=== PATIENT | female | born 1990 | race Asian ===

== ENCOUNTER → 2018-10-02 | Outpatient (REF) | payer OTHER ==
[2018-10-02 20:10] LABS: CHLAMYDIA DNA AMPLIFICATION NEGATIVE (NEGATIVE); GC DNA AMPLIFICATION NEGATIVE (NEGATIVE)
== END ==
LOC: M LAB REF 17:24
PROVIDERS: ATTEND Physician Assistant
DX: Z11.9 Encounter for screening for infectious and parasitic diseases, unspecified (principal)

== ENCOUNTER → 2018-10-03 | Outpatient (CLI) | payer OTHER ==
[2018-10-05 12:40] LABS: HEPATITIS B CORE ANTIBODY IGM NEGATIVE (NEGATIVE); HEPATITIS B SURFACE ANTIBODY NEGATIVE (POSITIVE); HEPATITIS B SURFACE ANTIGEN NEGATIVE (NEGATIVE); RUBELLA IgG QUALITATIVE IMMUNE (IMMUNE)
[2018-10-07 00:06] LABS: HERPES ZOSTER, VARICELLA IgG 962 index (Immune >165); HERPES ZOSTER, VARICELLA IgM <0.91 index (0.00-0.90); POLIO ANTIBODIES/POLIOMYELITIS Negative (Neg:<1:8)
== END ==
LOC: M LRY 17:37
PROVIDERS: ATTEND Physician Assistant
DX: Z01.84 Encounter for antibody response examination (principal); Z11.3 Encounter for screening for infections with a predominantly sexual mode of transmission

== ENCOUNTER → 2019-02-12 | Outpatient (CLI) | payer OTHER ==
[2019-02-12 17:14] LABS: HEMATOCRIT 38.2 % (36.0-47.0); HEMOGLOBIN 11.7 g/dl (12.0-15.5); MEAN CORPUSCULAR HGB CONC 30.6 g/dl (32.0-36.5); MEAN CORPUSCULAR VOLUME 68.7 fl (80.0-96.0); PLATELET COUNT, AUTOMATED 346 10^3/uL (150-450); RED BLOOD COUNT 5.56 10^6/uL (4.00-5.40); WHITE BLOOD COUNT 8.4 10^3/uL (4.0-10.0)
[2019-02-12 17:41] LABS: ALBUMIN 4.1 GM/DL (3.2-5.2); ALT/SGPT 16 U/L (12-78); BILIRUBIN,TOTAL 0.3 MG/DL (0.2-1.0); BLOOD UREA NITROGEN 15 MG/DL (7-18); C REACTIVE PROTEIN QUANTITATIV < 0.30 MG/DL (0.00-0.30); CALCIUM LEVEL 8.9 MG/DL (8.5-10.1); CARBON DIOXIDE LEVEL 30 MEQ/L (21-32); CHLORIDE LEVEL 105 MEQ/L (98-107); CREATININE FOR GFR 0.56 MG/DL (0.55-1.30); GLOMERULAR FILTRATION RATE > 60.0 (>60); GLUCOSE, FASTING 86 MG/DL (70-100); POTASSIUM SERUM 4.2 MEQ/L (3.5-5.1); SODIUM LEVEL 140 MEQ/L (136-145); TOTAL PROTEIN 7.5 GM/DL (6.4-8.2)
[2019-02-12 17:52] LABS: ERYTHROCYTE SEDIMENTATION RATE 9 mm/hr (0-20)
--- NOTE | 2019-02-12 18:48 | REP ---
HISTORY: Pain due to rheumatoid arthritis. Four views of the hands. COMPARISON: None. There is mild asymmetric intradigital joint space narrowing involving the proximal interphalangeal joint of the third digit. There is slight marginal osteophytosis. The joint spaces are otherwise symmetric and well maintained. There are no marginal erosions and there is no periarticular osteopenia. There is no acute fracture. IMPRESSION: Chronic changes involving the proximal interphalangeal joint of the third digit. These changes might be secondary to old trauma. FOUR VIEWS OF THE LEFT HAND: There is asymmetric interdigital joint space narrowing involving the proximal joints of digits two and three. This is seen with marginal osteophytosis. The remainder of the joint spaces are symmetric and well maintained. There is no periarticular osteopenia and there are no marginal erosions. There is no acute fracture. IMPRESSION: Bilateral chronic changes as described above. Electronically Signed by Gabriel Ferris DO 02/12/2019 07:45 P
== END ==
LOC: M LAB 16:08
PROVIDERS: ATTEND Internal Medicine Rheumatology
DX: Z87.39 Personal history of other diseases of the musculoskeletal system and connective tissue (principal)
CPT/HCPCS: 36415; 73130; 80053; 85027; 85652; 86140; 86200; 86431; G0463

== ENCOUNTER → 2019-06-21 | Outpatient (CLI) | payer OTHER ==
[2019-06-21 14:02] LABS: BASO % 0.2 % (0.0-1.0); EOS # 0.1 10^3/uL (0.0-0.5); EOS % 0.6 % (0.0-3.0); HEMATOCRIT 37.2 % (36.0-47.0); HEMOGLOBIN 11.5 g/dl (12.0-15.5); LYMPH # 1.8 10^3/uL (1.5-5.0); LYMPH % 21.7 % (24.0-44.0); MEAN CORPUSCULAR HGB CONC 30.9 g/dl (32.0-36.5); MEAN CORPUSCULAR VOLUME 67.9 fl (80.0-96.0); MONO # 0.8 10^3/uL (0.0-0.8); MONO % 9.3 % (0.0-5.0); NEUTROPHILS # 5.7 10^3/uL (1.5-8.5); NEUTROPHILS % 67.7 % (36.0-66.0); PLATELET COUNT, AUTOMATED 294 10^3/uL (150-450); RED BLOOD COUNT 5.48 10^6/uL (4.00-5.40); WHITE BLOOD COUNT 8.4 10^3/uL (4.0-10.0)
[2019-06-21 14:57] LABS: HEPATITIS C VIRUS ABY INDEX < 0.0 INDEX (<0.8); HIV 1&2 SCREEN CENTAUR NEGATIVE (NEGATIVE); RUBELLA IgG QUALITATIVE IMMUNE (IMMUNE)
[2019-06-21 15:29] LABS: CHLAMYDIA DNA AMPLIFICATION NEGATIVE (NEGATIVE); GC DNA AMPLIFICATION NEGATIVE (NEGATIVE)
== END ==
LOC: M PLALAB 11:17
PROVIDERS: ATTEND Advanced Practice Midwife
DX: Z34.92 Encounter for supervision of normal pregnancy, unspecified, second trimester (principal); Z3A.00 Weeks of gestation of pregnancy not specified
CPT/HCPCS: 36415; 85025; 86762; 86780; 86803; 86850; 87086; 87340; 87389; 87491; 87591; G0463

== ENCOUNTER → 2019-07-19 | Outpatient (CLI) | payer OTHER ==
--- NOTE | 2019-07-19 17:36 | REP ---
Obstetric sonography: History: Supervision of for anatomy. Findings: Scanning through the gravid uterus demonstrates a viable single intrauterine gestation in a cephalic lie. motion is observed and heart rate is recorded at 147 beats per minute. An anterior grade 0 placenta is seen without evidence of previa or abruption. Amniotic fluid is subjectively normal. Closed cervical length is 3.1 cm. No extrauterine abnormalities observed. Umbilical cord is seen draping over the shoulders. No anomaly is seen. spine is less than optimally visualized due to position. The following additional anatomic structures are identified and felt to be sonographically unremarkable: cranium, choroid plexus, cavum, cerebellum and posterior fossa, face and profile, lungs, four-chamber heart with left and right ventricular outflow tract views, diaphragm, left-sided stomach, abdominal wall cord insertion, three-vessel cord, kidneys and bladder, upper and lower extremities. Biometry chart: BPD 4.7 cm = 20 weeks 2 days HC 18.9 cm = 21 weeks 1 day AC 15.6 cm = 20 weeks 5 days FL 3.5 cm = 21 weeks 1 day HL 3.5 cm = 22 weeks 0 days CD 2.2 cm = 20 weeks 3 days HC/AC ratio normal 1.21. Cephalic index normal 0.67. Estimated weight 386 grams, 0 pounds 13 ounces, 44th percentile for 21 weeks 0 days. Impression: Viable single intrauterine gestation at 20 weeks 4 days by today's composite sonographic criteria. spine is less than optimally seen. Otherwise, anatomic survey is felt to be complete. Electronically Signed by Soham Abdalla MD 07/20/2019 02:24 P
== END ==
LOC: M LRY 13:57
PROVIDERS: ATTEND Advanced Practice Midwife
DX: Z34.92 Encounter for supervision of normal pregnancy, unspecified, second trimester (principal); Z3A.20 20 weeks gestation of pregnancy

== ENCOUNTER → 2019-09-24 | Outpatient (CLI) | payer OTHER ==
--- NOTE | 2019-09-25 01:55 | REP ---
Clinical: Anatomical evaluation. Comparison: 07/19/2019 . Findings: Examination demonstrates a single live intrauterine in cephalic presentation. motion is identified by technologist. Placenta is noted anterior and grade I without evidence for placenta previa or abruption. Amniotic fluid volume is normal. Cervix measures 3.2 cm in length and appears closed. No evidence for nuchal cord. Gestational age by LMP 30 weeks 4 days with KANNAN 11/29/2019 . Gestational age by current measurements 30 weeks 0 days with KANNAN 12/03/2019 . FHR equals 140 beats per minute. Estimated weight 1533 grams ( 34th percentile). Anatomical assessment demonstrates normal structures including cranium, facial features, four-chamber heart, diaphragm, stomach, cord insertion/three-vessel cord, kidneys, and bladder. Impression: single live intrauterine in cephalic presentation demonstrating appropriate estimated weight. Images of the cervical and thoracic spine are again limited due to positioning. Remainder of the anatomical assessment in conjunction with prior examination is complete.
== END ==
LOC: M WHC 13:44
PROVIDERS: ATTEND Nurse Practitioner Women's Health
DX: Z34.92 Encounter for supervision of normal pregnancy, unspecified, second trimester (principal); Z36.89 Encounter for other specified antenatal screening; Z3A.30 30 weeks gestation of pregnancy

== ENCOUNTER → 2019-09-24 | Outpatient (REF) | payer OTHER | LOC: M PLALAB 15:31 | PROVIDERS: ATTEND Specialist | DX: Z34.83 Encounter for supervision of other normal pregnancy, third trimester (principal) ==

== ENCOUNTER → 2019-10-24 | Outpatient (REF) | payer OTHER ==
[~2019-10-24] MED LIST: PLAQ200T4 PO; PRENTAB9 PO
== END ==
LOC: M SFHCSACK 16:31
PROVIDERS: ATTEND Specialist
DX: Z34.83 Encounter for supervision of other normal pregnancy, third trimester (principal)

== ENCOUNTER → 2019-10-24 | Outpatient (CLI) | payer OTHER ==
--- NOTE | 2019-11-11 14:18 | REP ---
REASON: Followup anatomy. The examination is dated 10/24/2019, however, it has been brought to my attention for the first time for interpretation today at this time. Multiple ultrasonographic images of the gravid uterus show a single intrauterine gestation in the cephalic presentation. Doppler interrogation of the heart shows a heart rate of 155 beats per minute. The placenta is anterior and not low lying. The subjective amniotic fluid volume is within normal limits. The cervix measures 3.6 cm in length and is closed. BPD 8.5 cm = 34 weeks 1 day HC 30.9 cm = 34 weeks 3 days AC 29.7 cm = 33 weeks 5 days FL 6.5 cm = 33 weeks 4 days The estimated weight is 2276 grams, which is at the 28th percentile for a 34 week-6-day gestational age. Today's examination shows the spine to be within normal limits. All other anatomical structures were seen previously. IMPRESSION: Single living intrauterine gestation as described above.
== END ==
LOC: M WHC 12:37
PROVIDERS: ATTEND Specialist
DX: Z36.2 Encounter for other antenatal screening follow-up (principal); Z3A.34 34 weeks gestation of pregnancy
CPT/HCPCS: 76816; 87081; G0463

== ENCOUNTER 2019-11-26 11:19 | Inpatient (IN) | payer OTHER ==
[~2019-11-26] VITALS: Ht 154.9 cm; Wt 64.6 kg
[2019-11-26] MEDS ORDERED: OXYTOCIN 30 UNITS IN 0.9% NaCl 500ML IV BAG (J2590) As Ordered ONE (12:08)
[2019-11-26] MEDS ORDERED: LR 1,000 ML IV ONE (12:30)
[2019-11-26 12:35] LABS: HEMATOCRIT 39.9 % (36.0-47.0); HEMOGLOBIN 12.4 g/dl (12.0-15.5); MEAN CORPUSCULAR HEMOGLOBIN 21.9 pg (27.0-33.0); MEAN CORPUSCULAR HGB CONC 31.1 g/dl (32.0-36.5); MEAN CORPUSCULAR VOLUME 70.6 fl (80.0-96.0); PLATELET COUNT, AUTOMATED 240 10^3/uL (150-450); RED BLOOD COUNT 5.65 10^6/uL (4.00-5.40); WHITE BLOOD COUNT 15.4 10^3/uL (4.0-10.0)
[2019-11-26] MEDS ORDERED: OXYTOCIN DRIP 30 UNITS in IV 1 EA IV SCH (13:02)
[2019-11-26] MEDS ORDERED: PRENTAB9 PO (13:06)
[2019-11-26] MEDS ORDERED: PLAQ200T4 PO (13:06)
--- NOTE | 2019-11-26 13:12 | HPEPDOC ---
Obstetrical History & Physical General Date of Admission Nov 26, 2019 at 12:24 History of Present Illness 29-year-old 3, para 1 who presents at 39 weeks 4 days with contractions. Chief Complaint: Contractions, term Information Provided By: Patient Age: 29 : 3 Livin Care Care: Good Care Number of Visits: 10 Dating Final EDC: Nov 29, 2019 Final EDC by: LMP LMP: Feb 23, 2019 EGA at Admission: 39 Past Medical History Past Obstetrical History : Past Obstetrical History: Multigravida Type of Delivery: Spontaneous Vaginal Del. 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 Past Medical History Medical History Rheumatoid arthritis Surgical History: Denies/None Family History Significant Family History: No pertinent family hx Social History Marital Status: Family situation: Spouse/partner home Psychosocial History: No pertinent psych hx * Smoker: non-smoker Alcohol: Denies Drugs: denies Allergies Coded Allergies: No Known Drug Allergies (Verified Allergy, Unknown, 11/26/19) Medications Scheduled Hydroxychloroquine Sulfate (Plaquenil) 200 Mg Tablet, 200 MG PO DAILY No.137/Iron/Folic Acd ( Vitamin Tablet) 1 Each Tablet, 1 TAB PO DAILY Physical Examination Physical Examination GENERAL: Alert and oriented times three. BREAST: . ABDOMEN: Gravid and non-tender to touch. FETUS: Is vertex (VTX) by sterile vaginal examination (SVE), fetus is vertex (VTX) by Arjun. HEART RATE: Regular rate and rhythm. LUNGS: Clear to auscultation (CTA). Laboratory Data 24H LABS Laboratory Tests 2 11/26/19 12:10: Nucleated Red Blood Cells % (auto) 0.0 11/26/19 12:31: Serology Scanned Report Hepatitis B Testing CBC/BMP Laboratory Tests 11/26/19 12:10 Pertinent Laboratoy Data Blood Type: A+ RBC Antibody Screen: Negative HIV: Negative Hepatitis B: Negative Hepatitis C: Negative Rapid Plasma Reagin: Nonreactive Rubella: Immune Chlamydia/Gonorrhea: Negative Group B Streptococcus: Negative Anatomy Ultrasound Placenta Location: Anterior Normal Anatomy: Yes Placenta Previa: No Vaginal Examination Dilation: 6 cm Effacement: 90% Station: -1, 0 Cervical Consistency: Soft Cervical Position: Anterior Presentation: Cephalic presentation Assessment Variability: Moderate Accelerations: Positive Tocometer Contractions: Yes Assessment/Plan Assessment 29-year-old 3, para 1 at 39 weeks 4 days estimate gestational age in active labor. Reassuring status Plan Admit and orient. Biometrics Head and consent. Group B Streptococcus (GBS) negative. Labs and intravenous (IV) per unit protocol. Counseled on Pitocin and induction of labor (IOL). Anticipate normal spontaneous delivery (). C-S as appropriate. AGUEDA PINEDO MD. Nov 26, 2019 13:12
[2019-11-26] MEDS ORDERED: DIBUCAINE 1% OINTMENT 30GM TOP PRN (13:15)
[2019-11-26] MEDS ORDERED: DOCUSATE SODIUM 100 MG CAP PO PRN (13:15)
[2019-11-26] MEDS ORDERED: IBUPROFEN 800 MG TAB PO PRN (13:15)
[2019-11-26] MEDS ORDERED: METHYLERGONOVINE MALEATE 0.2 MG TAB PO PRN (13:15)
[2019-11-26] MEDS ORDERED: ACETAMINOPHEN 500 MG TAB PO PRN (13:15)
[2019-11-26] MEDS ORDERED: IBUPROFEN 600MG TAB PO PRN (13:15)
[2019-11-26] MEDS ORDERED: MEASLES,MUMPS,RUBELLA VACCINE INJ (MMR-II) (90707) SC SCH (13:15)
[2019-11-26] MEDS ORDERED: ANUSOL HC CREAM 30GM TOP PRN (13:15)
[2019-11-26] MEDS ORDERED: MOM 30ML SUSPENSION UDC PO PRN (13:15)
[2019-11-26] MEDS ORDERED: RHOGAM 300 MCG (1500 IU) INJ (J2790) IM SCH (13:15)
[2019-11-26] MEDS ORDERED: ACETAMINOPHEN TAB 650MG DOSE (2X325MG) PO PRN (13:15)
--- NOTE | 2019-11-26 13:16 | DNPDOC ---
[facility] Delivery Note Delivery Note DATE OF DELIVERY: 11/26/2019 TIME OF : 1229 GENDER: Female. APGARS: 9 and 9. WEIGHT:, 3090 grams or 6 pounds 13 ounces. LACERATIONS: First-degree midline laceration ANESTHESIA: None. ESTIMATED BLOOD LOSS: 300ml COUNTS: 5 laparotomy sponges accounted for prior to after delivery. One sharps removed delivery field. DELIVERY NOTE: 11/26/2019 at 1229. This patient is 29-year-old 3, now para 2, had a spontaneous vaginal delivery of viable female infant, Apgars, 9 and 9. Weight was 6 lbs. 13 oz., 3090 g. Head was delivered occiput anterior (OA), followed by delivery of the shoulders and corpus. was handed to mom with a good cry. Cord was clamped times two and was cut by the mother under my direction. Placenta was then drained and delivered grossly intact. A premixed bag of 500 mL of normal saline with 30 units of Pitocin was then bolused along with uterine massage until the uterus was firm. On inspection, there was a first-degree midline laceration which was repaired with 3-0 Vicryl. On reinspection, cervix, vagina, perineum was grossly intact and hemostatic. Mom and baby in recovery on stable condition. AGUEDA PINEDO MD. Nov 26, 2019 13:16
[2019-11-26] MEDS ORDERED: LR 1,000 ML IV SCH (13:30)
[2019-11-26] MEDS ORDERED: LIDOCAINE 1% MDV 20ML VIAL INFIL ONE (13:30)
[2019-11-26 15:00] VITALS: BP 111/61
[2019-11-26 18:03] VITALS: BP 101/59
[2019-11-27] MEDS: HYDROXYCHLOROQUINE 200 MG TAB PO SCH ×2 (01:04→20:38)
[2019-11-27 06:31] VITALS: BP 100/57
--- NOTE | 2019-11-27 06:52 | IPNPDOC ---
Progress Note Date of Service: Nov 27, 2019 Day#: 1 Progress Note SUBJECT: Doing well without complaints. Ambulating, voiding and pain is well- controlled. Reports minimal lochia. +breast feeding OBJECTIVE: VITAL SIGNS: Within normal limits, afebrile. Alert and oriented times three. Abdomen: Fundus firm at U-2. Soft, NTTP. Ext: neg calf tenderness. ASSESSMENT: day #1 status post normal spontaneous vaginal delivery. Recovering in stable condition. PLAN: 1. Continue routine care 2. Discharge plans for tomorrow, possibly today if baby is discharged VS, I&O, 24H, Fishbone Vital Signs/I&O Vital Signs Date Time Temp Pulse Resp B/P (MAP) Pulse Ox O2 Delivery O2 Flow Rate FiO2 11/27/19 06:31 97.9 69 18 100/57 (71) I&O- Last 24 Hours up to 6 AM 11/27/19 06:00 Intake Total 800 ml Output Total 300 ml Balance 500 ml Laboratory Data 24H LABS Laboratory Tests 2 11/26/19 12:10: Nucleated Red Blood Cells % (auto) 0.0 11/26/19 12:31: Serology Scanned Report Hepatitis B Testing CBC/BMP Laboratory Tests 11/26/19 12:10 AGUEDA PINEDO MD. Nov 27, 2019 06:52
[2019-11-27] MEDS: PRENATAL VITAMINS CHEWABLE TABLET PO SCH (09:00)
[2019-11-27 18:00] VITALS: BP 118/74
[2019-11-28 06:29] VITALS: BP 109/70
[2019-11-28 07:59] VITALS: BP 109/70
[2019-11-28] MEDS: PRENATAL VITAMINS CHEWABLE TABLET PO SCH (09:00)
== END 2019-11-29 | disposition home or self-care (01) | DRG 807 ==
LOC: M LDO 11:19 → M LDI 12:24 → M OBS 15:28
PROVIDERS: ADMIT Obstetrics & Gynecology; ATTEND Obstetrics & Gynecology
PROC: 10E0XZZ Delivery of Products of Conception, External Approach (ICD-10-PCS; principal; 2019-11-26)
PROC: 0HQ9XZZ Repair Perineum Skin, External Approach (ICD-10-PCS; 2019-11-26)
DX: O70.0 First degree perineal laceration during delivery (principal); Z37.0 Single live birth; Z3A.39 39 weeks gestation of pregnancy

== ENCOUNTER → 2020-03-31 | Outpatient (REF) | payer OTHER ==
[2020-03-31 16:54] LABS: BASO % 0.2 % (0.0-1.0); EOS # 0.2 10^3/uL (0.0-0.5); EOS % 1.7 % (0.0-3.0); HEMATOCRIT 40.4 % (36.0-47.0); HEMOGLOBIN 12.2 g/dl (12.0-15.5); LYMPH # 2.9 10^3/uL (1.5-5.0); MEAN CORPUSCULAR HEMOGLOBIN 21.2 pg (27.0-33.0); MEAN CORPUSCULAR HGB CONC 30.2 g/dl (32.0-36.5); MEAN CORPUSCULAR VOLUME 70.1 fl (80.0-96.0); MONO # 0.7 10^3/uL (0.0-0.8); NEUTROPHILS # 6.1 10^3/uL (1.5-8.5); NEUTROPHILS % 61.9 % (36.0-66.0); PLATELET COUNT, AUTOMATED 329 10^3/uL (150-450); RED BLOOD COUNT 5.76 10^6/uL (4.00-5.40); WHITE BLOOD COUNT 9.8 10^3/uL (4.0-10.0)
[2020-03-31 17:07] LABS: ALBUMIN 3.8 GM/DL (3.2-5.2); ALT/SGPT 20 U/L (12-78); BILIRUBIN,TOTAL 0.3 MG/DL (0.2-1.0); BLOOD UREA NITROGEN 16 MG/DL (7-18); C REACTIVE PROTEIN QUANTITATIV 0.64 MG/DL (0.00-0.30); CALCIUM LEVEL 9.3 MG/DL (8.5-10.1); CARBON DIOXIDE LEVEL 28 MEQ/L (21-32); CHLORIDE LEVEL 106 MEQ/L (98-107); CREATININE FOR GFR 0.56 MG/DL (0.55-1.30); GLOMERULAR FILTRATION RATE > 60.0 (>60); GLUCOSE, FASTING 106 MG/DL (70-100); POTASSIUM SERUM 4.1 MEQ/L (3.5-5.1); SODIUM LEVEL 139 MEQ/L (136-145); TOTAL PROTEIN 7.5 GM/DL (6.4-8.2)
[2020-03-31 17:23] LABS: HEPATITIS B SURFACE ANTIGEN NEGATIVE (NEGATIVE)
[2020-03-31 19:15] LABS: ERYTHROCYTE SEDIMENTATION RATE 9 mm/hr (0-20)
== END ==
LOC: M SFHCRHEU 15:34
PROVIDERS: ATTEND Internal Medicine
DX: M05.79 Rheumatoid arthritis with rheumatoid factor of multiple sites without organ or systems involvement (principal)
CPT/HCPCS: 80053; 85025; 85652; 86140; 86480; 86704; 87340; G0463

== ENCOUNTER → 2020-08-14 | Outpatient (REF) | payer OTHER ==
[2020-08-14 19:15] LABS: BASO % 0.2 % (0.0-1.0); EOS # 0.2 10^3/uL (0.0-0.5); EOS % 1.8 % (0.0-3.0); HEMOGLOBIN 11.8 g/dl (12.0-15.5); LYMPH # 3.4 10^3/uL (1.5-5.0); LYMPH % 30.1 % (24.0-44.0); MEAN CORPUSCULAR HGB CONC 30.3 g/dl (32.0-36.5); MEAN CORPUSCULAR VOLUME 69.4 fl (80.0-96.0); MONO % 8.5 % (2.0-8.0); NEUTROPHILS # 6.6 10^3/uL (1.5-8.5); PLATELET COUNT, AUTOMATED 340 10^3/uL (150-450); RED BLOOD COUNT 5.62 10^6/uL (4.00-5.40); WHITE BLOOD COUNT 11.1 10^3/uL (4.0-10.0)
[2020-08-14 19:19] LABS: ALBUMIN 3.9 GM/DL (3.2-5.2); ALT/SGPT 15 U/L (12-78); BILIRUBIN,TOTAL 0.3 MG/DL (0.2-1.0); BLOOD UREA NITROGEN 14 MG/DL (7-18); CALCIUM LEVEL 8.6 MG/DL (8.5-10.1); CARBON DIOXIDE LEVEL 25 MEQ/L (21-32); CHLORIDE LEVEL 110 MEQ/L (98-107); CREATININE FOR GFR 0.48 MG/DL (0.55-1.30); GLOMERULAR FILTRATION RATE > 60.0 (>60); GLUCOSE, FASTING 105 MG/DL (70-100); POTASSIUM SERUM 4.1 MEQ/L (3.5-5.1); SODIUM LEVEL 142 MEQ/L (136-145); TOTAL PROTEIN 7.2 GM/DL (6.4-8.2)
[2020-08-14 20:15] LABS: ERYTHROCYTE SEDIMENTATION RATE 7 mm/hr (0-20)
== END ==
LOC: M SFHCRHEU 14:35
PROVIDERS: ATTEND Internal Medicine Rheumatology
DX: M05.79 Rheumatoid arthritis with rheumatoid factor of multiple sites without organ or systems involvement (principal)
CPT/HCPCS: 80053; 85025; 85652; 86140; G0463

== ENCOUNTER → 2021-02-04 | Outpatient (REF) | payer OTHER ==
[2021-02-04 17:20] LABS: BASO # 0.1 10^3/uL (0.0-0.2); BASO % 0.7 % (0.0-1.0); EOS # 0.1 10^3/uL (0.0-0.5); HEMATOCRIT 44.1 % (36.0-47.0); HEMOGLOBIN 13.4 g/dl (12.0-15.5); LYMPH # 3.4 10^3/uL (1.5-5.0); LYMPH % 31.7 % (24.0-44.0); MEAN CORPUSCULAR HEMOGLOBIN 20.6 pg (27.0-33.0); MEAN CORPUSCULAR HGB CONC 30.4 g/dl (32.0-36.5); MEAN CORPUSCULAR VOLUME 67.6 fl (80.0-96.0); MONO # 0.6 10^3/uL (0.0-0.8); MONO % 5.6 % (2.0-8.0); NEUTROPHILS # 6.5 10^3/uL (1.5-8.5); NEUTROPHILS % 60.7 % (36.0-66.0); RED BLOOD COUNT 6.52 10^6/uL (4.00-5.40); WHITE BLOOD COUNT 10.7 10^3/uL (4.0-10.0)
[2021-02-04 17:47] LABS: ALBUMIN 4.5 GM/DL (3.2-5.2); ALT/SGPT 18 U/L (12-78); BILIRUBIN,TOTAL 0.5 MG/DL (0.2-1.0); BLOOD UREA NITROGEN 11 MG/DL (7-18); CALCIUM LEVEL 9.8 MG/DL (8.5-10.1); CARBON DIOXIDE LEVEL 28 MEQ/L (21-32); CHLORIDE LEVEL 102 MEQ/L (98-107); CPK CREATINE PHOSPHOKINASE 160 U/L (26-192); CREATININE FOR GFR 0.63 MG/DL (0.55-1.30); GLOMERULAR FILTRATION RATE > 60.0 (>60); GLUCOSE, FASTING 97 MG/DL (70-100); POTASSIUM SERUM 4.1 MEQ/L (3.5-5.1); SODIUM LEVEL 138 MEQ/L (136-145); TOTAL PROTEIN 8.7 GM/DL (6.4-8.2)
[2021-02-04 17:52] LABS: ERYTHROCYTE SEDIMENTATION RATE 2 mm/hr (0-20)
[2021-02-04 18:50] LABS: PLATELET COUNT, AUTOMATED 278 10^3/uL (150-450)
== END ==
LOC: M SFHCRHEU 14:14
PROVIDERS: ATTEND Internal Medicine Rheumatology
DX: M05.79 Rheumatoid arthritis with rheumatoid factor of multiple sites without organ or systems involvement (principal)

== ENCOUNTER → 2021-03-03 | Outpatient (CLI) | payer OTHER ==
--- NOTE | 2021-03-03 15:32 | REP ---
INDICATION: (+) PREG W/ ABD PAIN CRAMPING. COMPARISON: None. TECHNIQUE: Real-time sonographic evaluation of gravid uterus performed. FINDINGS: There is a single living intrauterine gestation. The estimated gestational age is 6 weeks 6 days based on a crown-rump length of 9 millimeters, EDC 10/21/2021. heart rate 153 beats per minute. Blood flow seen in each ovary with duplex Doppler evaluation, with no torsion. A hypoechoic area in the right ovary may represent a complex corpus luteum 2.2 centimeters in diameter. There appears to be a small subchorionic hemorrhage posteriorly measuring 1.5 x 0.4 x 2.9 centimeters. IMPRESSION: Single living intrauterine gestation 6 weeks 6 days, heart rate 153 beats per minute. Posterior subchorionic hemorrhage 1.5 x 0.4 x 2.9 centimeters. <Electronically signed by Aguila Couch > 03/03/21 0523
== END ==
LOC: M RAD 14:57
PROVIDERS: ATTEND Family Medicine
DX: O26.891 Other specified pregnancy related conditions, first trimester (principal); R10.84 Generalized abdominal pain; Z3A.01 Less than 8 weeks gestation of pregnancy; O20.8 Other hemorrhage in early pregnancy

== ENCOUNTER → 2021-03-29 | Outpatient (CLI) | payer OTHER ==
[2021-03-29 18:02] LABS: BASO % 0.2 % (0.0-1.0); EOS # 0.1 10^3/uL (0.0-0.5); EOS % 1.1 % (0.0-3.0); HEMATOCRIT 39.4 % (36.0-47.0); HEMOGLOBIN 12.1 g/dl (12.0-15.5); LYMPH # 3.2 10^3/uL (1.5-5.0); MEAN CORPUSCULAR HEMOGLOBIN 20.7 pg (27.0-33.0); MEAN CORPUSCULAR HGB CONC 30.7 g/dl (32.0-36.5); MEAN CORPUSCULAR VOLUME 67.5 fl (80.0-96.0); MONO # 0.7 10^3/uL (0.0-0.8); MONO % 6.3 % (2.0-8.0); NEUTROPHILS # 7.6 10^3/uL (1.5-8.5); NEUTROPHILS % 64.9 % (36.0-66.0); PLATELET COUNT, AUTOMATED 299 10^3/uL (150-450); RED BLOOD COUNT 5.84 10^6/uL (4.00-5.40); WHITE BLOOD COUNT 11.8 10^3/uL (4.0-10.0)
[2021-03-29 19:56] LABS: GC DNA AMPLIFICATION NEGATIVE (NEGATIVE)
[2021-03-30 15:00] LABS: HEPATITIS C VIRUS ABY INDEX 0.1 INDEX (<0.8); HIV 1&2 SCREEN CENTAUR NEGATIVE (NEGATIVE)
== END ==
LOC: M PLALAB 15:54
PROVIDERS: ATTEND Obstetrics & Gynecology
DX: Z36.9 Encounter for antenatal screening, unspecified (principal); Z3A.00 Weeks of gestation of pregnancy not specified

== ENCOUNTER → 2021-06-07 | Outpatient (CLI) | payer OTHER | LOC: M WHC 14:48 | PROVIDERS: ATTEND Specialist | DX: Z34.82 Encounter for supervision of other normal pregnancy, second trimester (principal); Z3A.20 20 weeks gestation of pregnancy ==

== ENCOUNTER → 2021-06-21 | Outpatient (CLI) | payer OTHER | LOC: M WHC 15:00 | PROVIDERS: ATTEND Obstetrics & Gynecology | DX: Z36.2 Encounter for other antenatal screening follow-up (principal); Z3A.23 23 weeks gestation of pregnancy ==

== ENCOUNTER → 2021-07-22 | Outpatient (CLI) | payer OTHER ==
[2021-07-22 17:56] LABS: HEMATOCRIT 28.5 % (36.0-47.0); HEMOGLOBIN 9.1 g/dl (12.0-15.5); MEAN CORPUSCULAR HEMOGLOBIN 21.9 pg (27.0-33.0); MEAN CORPUSCULAR HGB CONC 31.9 g/dl (32.0-36.5); MEAN CORPUSCULAR VOLUME 68.5 fl (80.0-96.0); PLATELET COUNT, AUTOMATED 224 10^3/uL (150-450); RED BLOOD COUNT 4.16 10^6/uL (4.00-5.40)
[2021-07-22 18:47] LABS: GC DNA AMPLIFICATION NEGATIVE (NEGATIVE)
== END ==
LOC: M LAB 15:34
PROVIDERS: ATTEND Obstetrics & Gynecology
DX: Z36.9 Encounter for antenatal screening, unspecified (principal); Z3A.23 23 weeks gestation of pregnancy